=== PATIENT | female | born 1965 | race Caucasian/White ===

== ENCOUNTER 2016-07-11 17:16 | Emergency (ER) | payer OTHER ==
[2016-07-11] MEDS ORDERED: KETOROLAC TROMETHAMINE 30 MG/ML VIAL IM ONE (18:03)
[2016-07-11] MEDS ORDERED: KETOROLAC TROMETHAMINE 60 MG/2 ML VIAL IM ONE (18:09)
--- NOTE | 2016-07-11 18:16 | ERNOTE ---
Upper Extremity HPI - General Extremities Pain Location: shoulder: left Time Seen by Provider: 07/11/16 17:44 Source: patient Exam Limitations: no limitations - Immun/Allergies/Home Medications Immunizations: IMMUNIZATION HX Immunizations Up to Date Yes History of Influenza Vaccine No Hx Pneumococcal Vaccination No Allergies/Adverse Reactions: Allergies Allergy/AdvReac Type Severity Reaction Status Date / Time No Known Allergies Allergy Unverified 11/29/15 22:36 Home Medications: HOME MEDICATIONS Amitriptyline HCl [Elavil] 25 mg PO HS #30 tab 02/03/16 [Last Taken Unknown] LORazepam [Ativan] 1 mg PO TID #30 tab 02/03/16 [Last Taken Unknown] Naproxen [Naprosyn] 500 mg PO BID #60 tablet 07/11/16 [Last Taken Unknown] - History of Present Illness Narrative: Patient presents with exacerbation of her left shoulder pain. 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 She states she has very limited range of motion at this point without severe pain. Occurred: other - re-injury over and old injury Location of Incident: work Severity: severe Method of Injury: Reports: direct blow - initially Modifying Factors - (Worsens): Reports: movement Other Injuries: Reports: none Review of Systems - Review of Systems Constitutional: Present: no symptoms reported, See HPI EYE: Present: no symptoms reported ENT: Present: no symptoms reported Respiratory: Present: no symptoms reported Cardiology: Present: no symptoms reported Gastrointestinal/Abdominal: Present: no symptoms reported Genitourinary: Present: no symptoms reported Musculoskeletal: Present: See HPI, joint pain Skin: Present: no symptoms reported Neurological: Present: no symptoms reported Endocrine: Present: no symptoms reported Hematologic/Lymphatic: Present: no symptoms reported Psych: Present: no symptoms reported - Patient's Past Medical History Patient History - Medical: No pertinent hx, Other - depression and anxiety Patient History - Cardiac/Respiratory: No pertinent hx Additional Info: old shoulder injury Patient History - Cancer: No Hx of Cancer Patient History - Surgical Procedures: Patient History - Other: None - Social History Living Situations: home Psych History: Hx of Anxiety, Hx of Depression Alcohol Use: none Drug Use: marijuana, meth - Immunizations Immunizations Up to Date: Yes Hx Pneumococcal Vaccination: No History of Influenza Vaccine: No Physical Exam - Physical Exam General Appearance: Present: wd/wn, alert, moderate distress - worse with any use or motion Eye Exam: Normal inspection: bilateral, PERRL: bilateral Ears, Nose, Throat: Present: normal ENT inspection, H, normal pharynx Neck: Present: normal inspection, nontender Respiratory: Present: no respiratory distress, normal breath sounds, no accessory muscle use, chest nontender, lungs clear Cardiovascular/Chest: Present: regular rate, rhythm, no murmur, normal peripheral pulses Gastrointestinal/Abdominal: Present: normal bowel sounds, nontender, nondistended, soft, no organomegaly Rectal Exam: Present: deferred Back Exam: Present: normal inspection, normal range of motion Extremity Exam: Present: no edema, decreased range of motion, other - pt unable to fully perform internal rotation, external rotation or abduction without significant pain Neurological Exam: Present: alert, oriented, normal mood/affect Skin Exam: Present: normal color, warm/dry Lymphatic Exam: Present: no adenopathy ED Progress - Vital Signs Patient's Vital Signs:: I have reviewed the patient's vital signs. - X-Ray X-Ray #1 X-Ray: shoulder - Progress/Reassessment Chief Complaint: Shoulder Injury/Pain Progress:: Improved Plan - Plan Plan: Given the amount of pain that she has her left shoulder is difficult to determine whether there is an actual rotator cuff component to this or not. Patient will be placed in a sling, she will be started on NSAIDs and we will give her a referral to orthopedic surgery. Departure Clinical Impression: Left shoulder strain Qualifiers: Encounter type: initial encounter Qualified Code(s): S46.912A - Strain of unspecified muscle, fascia and tendon at shoulder and upper arm level, left arm , initial encounter - Departure Disposition: Home self-care Condition: Good Instructions: Shoulder Pain, [id number] Referrals: Cecil Singer MD [Staff Physician] - Prescriptions: Naproxen [Naprosyn] 500 mg PO BID #60 tablet
--- OUTSIDE RECORDS SUMMARY | 2016-07-11 18:21 | XMS REPORT | Continuity of Care Document ---
:1965 Author Organization [facility] [place] [address] Care Team Providers Name Role Phone Provider, None Per Patient Primary Care Provider Unavailable Source Comments This disclosure is being made pursuant to the [employer] program and contain all information available regarding this patient.[facility] Active Allergies and Adverse Reactions No Known Allergies Current Medications Be aware that medications may not be up to date as of this document. Alwaysverify current medications with the patient. Prescription Sig. Disp. Refills Start Date End Date Status amitriptyline Take 1 tablet 30 tablet 1 07/04/2016 Active (ELAVIL) 25 MG tablet by mouth nightly. cyclobenzaprine Take 1 tablet 30 tablet 1 07/04/2016 Active (FLEXERIL) 10 MG by mouth tablet nightly as needed for Muscle spasms. hydrOXYzine (ATARAX) Take 1 tablet 60 tablet 0 07/04/2016 Active 25 MG tablet by mouth every 8 (eight) hours as needed for Anxiety. meloxicam (MOBIC) 15 Take 1 tablet 30 tablet 2 07/04/2016 Active MG tablet by mouth daily. cloNIDine (CATAPRES) Take 1 tablet 20 tablet 0 09/29/2011 Discontinued 0.1 MG tablet by mouth 2 7 (two) times daily. meloxicam (MOBIC) 15 Take 1 tablet 30 tablet 2 07/04/2016 Discontinued MG tablet by mouth 7 daily. cyclobenzaprine Take 1 tablet 30 tablet 1 07/04/2016 Discontinued (FLEXERIL) 10 MG by mouth 7 tablet nightly as needed for Muscle spasms. amitriptyline Take 1 tablet 30 tablet 1 07/04/2016 Discontinued (ELAVIL) 25 MG tablet by mouth 7 nightly. hydrOXYzine (ATARAX) Take 1 tablet 60 tablet 0 07/04/2016 Discontinued 25 MG tablet by mouth 7 every 8 (eight) hours as needed for Anxiety. Active Problems No known active problems Most Recent Encounters Date Type Specialty Providers Description 07/04/2016 Office Visit Family Medicine Dayday Grossman DO Acute pain of left shoulder (Primary Dx); Acute midline low back pain without sciatica; Depression, unspecified depression type; Anxiety Social History Tobacco Use Types Packs/Day Years Used Date Current Every Day Smoker 0.5 Alcohol Use Drinks/Week oz/Week Comments No Last Filed Vital Signs Vital Sign Reading Time Taken Blood Pressure 132/94 07/04/2016 5:03 PM CDT Pulse 112 07/04/2016 5:03 PM CDT Temperature 36.3 C (97.3 F) 09/29/2011 11:47 AM CDT Respiratory Rate 16 07/04/2016 5:03 PM CDT Height 1.727 m (5' 8") 07/04/2016 5:03 PM CDT Weight 68.312 kg (150 lb 9.6 oz) 07/04/2016 5:03 PM CDT Body Mass Index 22.9 07/04/2016 5:03 PM CDT Oxygen Saturation 98% 07/04/2016 5:03 PM CDT Plan of Care Date Type Specialty Providers Description 07/18/2016 Appointment Family Medicine Dayday Grossman DO [facility] [place], [place] [id number] [phone] (Fax) Health Maintenance Due Date Last Done Comments Pneumococcal Medium Risk 19-64 yo (1 of 1 - PPSV23) 01/06/1984 Tetanus/Pertussis (1 - Tdap) 01/06/1984 Pap Smear 1986 Colonoscopy 2015 Mammogram 2015 Well Adult Visit 2015 Influenza Immunization (#1) 2015 Results from Last 3 Months Not on file
--- OUTSIDE RECORDS SUMMARY | 2016-07-11 18:21 | XMS REPORT | Continuity of Care Document ---
:1965 Author Organization [facility] ([facility] [place]) Address [address] [place] [address] Phone [phone] Care Team Providers Name Role Phone Unavailable Primary Care Provider Unavailable Source Comments This disclosure is being made pursuant to the Care Everywhere program, applicable federal and state laws, and may not contain all informaitonavailable regarding this patient.[facility] ([facility] [place]) Active Allergies and Adverse Reactions Not on File Current Medications Not on file Active Problems Not on file Social History Tobacco Use Types Packs/Day Years Used Date Never Assessed Plan of Care Health Maintenance Due Date Last Done Comments HCV Screening 1965 Hepatitis B Vaccine (1 of 3 - Primary Series) 1965 Tdap Vaccine 01/06/1976 Lipid Disorder Screening 1983 MMR Vaccine 1983 Td Vaccine 1983 Cervical Cancer Screening 1995 Mammogram 2005 07/23/1997 Colonoscopy 2015 Influenza Vaccine: Seasonal (#1) 10/12/2015 Results from Last 3 Months Not on file
[2016-07-11 19:17] VITALS: BP 135/76
== END 2016-07-11 19:05 | disposition home or self-care (01) ==
LOC: ER 17:16
DX: S46.912A Strain of unspecified muscle, fascia and tendon at shoulder and upper arm level, left arm, initial encounter (principal); X50.3XXA Overexertion from repetitive movements, initial encounter; Y93.H2 Activity, gardening and landscaping; Y92.89 Other specified places as the place of occurrence of the external cause; Y99.0 Civilian activity done for income or pay; F41.9 Anxiety disorder, unspecified; F32.9 Major depressive disorder, single episode, unspecified

== ENCOUNTER 2016-10-06 20:35 | Emergency (ER) | payer OTHER ==
[2016-10-06] MEDS ORDERED: ACETAMINOPHEN WITH CODEINE 1 EACH TABLET PO ONE (21:29)
--- OUTSIDE RECORDS SUMMARY | 2016-10-06 21:29 | XMS REPORT | Clinical Summary ---
:1965 Author Organization [facility] [place] [address] Care Team Providers Name Role Phone Unavailable Primary Care Provider Unavailable Source Comments This disclosure is being made pursuant to the [employer] program and maynot contain all information available regarding this patient.[facility] Allergies No Known Allergies Current Medications Be aware that medications may not be up to date as of this document. Alwaysverify current medications with the patient. Prescription Sig. Disp. Refills Start Date End Date Status amitriptyline (ELAVIL) Take 1 tablet by 30 tablet 1 07/04/2016 Active 25 MG mouth nightly. tabletIndications:Depres chantelle, unspecified depression type cyclobenzaprine Take 1 tablet by 30 tablet 1 07/04/2016 Active (FLEXERIL) 10 MG mouth nightly as tabletIndications:Acute needed for pain of left Muscle spasms. shoulder,Acute midline low back pain without sciatica hydrOXYzine (ATARAX) 25 Take 1 tablet by 60 tablet 0 07/04/2016 Active MG mouth every 8 tabletIndications:Anxiet (eight) hours as y needed for Anxiety. meloxicam (MOBIC) 15 MG Take 1 tablet by 30 tablet 2 07/04/2016 Active tabletIndications:Acute mouth daily. pain of left shoulder,Acute midline low back pain without sciatica Active Problems No known active problems Family History Medical History Relation Name Comments Diabetes Father Alzheimer's disease Mother Relation Name Status Comments Father Mother Social History Tobacco Use Types Packs/Day Years Used Date Current Every Day Smoker 0.5 Alcohol Use Drinks/Week oz/Week Comments No Sex Assigned at Date Recorded Not on file Last Filed Vital Signs Vital Sign Reading Time Taken Blood Pressure 132/94 07/04/2016 5:03 PM CDT Pulse 112 07/04/2016 5:03 PM CDT Temperature 36.3 C (97.3 F) 09/29/2011 11:47 AM CDT Respiratory Rate 16 07/04/2016 5:03 PM CDT Oxygen Saturation 98% 07/04/2016 5:03 PM CDT Inhaled Oxygen Concentration - - Weight 68.3 kg (150 lb 9.6 oz) 07/04/2016 5:03 PM CDT Height 172.7 cm (5' 8") 07/04/2016 5:03 PM CDT Body Mass Index 22.9 07/04/2016 5:03 PM CDT Plan of Treatment Health Maintenance Due Date Last Done Comments Pneumococcal Medium Risk 19-64 yo (1 of 1 - PPSV23) 01/06/1984 Tetanus/Pertussis (1 - Tdap) 01/06/1984 Pap Smear 1986 Colonoscopy 2015 Mammogram 2015 Well Adult Visit 2015 INFLUENZA IMMUNIZATION (#1) 2015 Results Not on filefrom Last 3 Months Insurance Payer Benefit Plan / Subscriber ID Type Phone Address Group [employer] [place] [id number] Managed [phone] [address] [address] MEDICAID MEDICAID [address] [place] [address] [address] [phone] [address] [place] Personal/Family Self 1965 [address]: [address] [phone] [place] [address] [place] [address] [place] VEL[place]SQUEZ Third Republican Self 1965 Home: [address] Liability [phone] [place] [address] [place] [address]
--- OUTSIDE RECORDS SUMMARY | 2016-10-06 21:29 | XMS REPORT | Encounter Summary ---
:1965 Author Organization [employer] [place] [address] Care Team Providers Name Role Phone Unavailable Primary Care Provider Unavailable Reason for Visit Reason Comments Shoulder Pain Left Back Pain-New >28 days Encounter Details Date Type Department Care Team Description 07/04/2016 Office Visit [facility] Dayday Grossman V, Acute pain of left shoulder (Primary Dx); Fernando MYLES Acute midline low back pain without sciatica; [facility] Depression, unspecified depression type; [place] [address] [place] [address] Anxiety [phone] Social History Tobacco Use Types Packs/Day Years Used Date Current Every Day Smoker 0.5 Alcohol Use Drinks/Week oz/Week Comments No Sex Assigned at Date Recorded Not on file as of this encounter Last Filed Vital Signs Vital Sign Reading Time Taken Blood Pressure 132/94 07/04/2016 5:03 PM CDT Pulse 112 07/04/2016 5:03 PM CDT Temperature - - Respiratory Rate 16 07/04/2016 5:03 PM CDT Oxygen Saturation 98% 07/04/2016 5:03 PM CDT Inhaled Oxygen Concentration - - Weight 68.3 kg (150 lb 9.6 oz) 07/04/2016 5:03 PM CDT Height 172.7 cm (5' 8") 07/04/2016 5:03 PM CDT Body Mass Index 22.9 07/04/2016 5:03 PM CDT in this encounter Instructions Patient Instructions - Dayday Grossman DO - 07/04/2016 5:30 PM CDT Depression Treatment: Care Instructions Your Care Instructions Depression is a condition that affects the way you feel, think, and act. It causes symptoms such as low energy, loss of interest in daily activities, and sadness or grouchiness that goes on for a longtime. Depression is very common and affects men and women of all ages. Depression is a medical illness caused by changes in the natural chemicals in your brain. It is not a character flaw, and it does not mean that you are a bad or weak person. It does not mean that youare going crazy. It is important to know that depression can be treated. Medicines, counseling, and self-care can all help. Many people do not get help because they are embarrassed or think that they will get over thedepression on their own. But some people do not get better without treatment. Follow-up care is a thomas part of your treatment and safety. Be sure to make and go to all appointments, and call your doctor if you are having problems. It's also a good idea to know your test resultsand keep a list of the medicines you take. How can you care for yourself at home? Learn about antidepressant medicines Antidepressant medicines can improve or end the symptoms of depression. You may need to take the medicine for at least 6 months, and often longer. Keep taking your medicine even if you feel better. Ifyou stop taking it too soon, your symptoms may come back or get worse. You may start to feel better within 1 to 3 weeks of taking antidepressant medicine. But it can take as many as 6 to 8 weeks to see more improvement. Talk to your doctor if you have problems with yourmedicine or if you do not notice any improvement after 3 weeks. Antidepressants can make you feel tired, dizzy, or nervous. Some people have dry mouth, constipation, headaches, sexual problems, an upset stomach, or diarrhea. Many of these side effects are mild andgo away on their own after you take the medicine for a few weeks. Some may last longer. Talk to your doctor if side effects bother you too much. You might be able to try a different medicine. If youare or , talk to your doctor about what medicines you can take. Learn about counseling In many cases, counseling can work as well as medicines to treat mild to moderate depression. Counseling is done by licensed mental health providers, such as psychologists, social workers, and some types of nurses. It can be done in one-on-one sessions or in a group setting. Many people find group sessions helpful. Cognitive-behavioral therapy is a type of counseling. In this treatment therapy , you learn how to see and change unhelpful thinking styles that may be adding to your depression. Counseling and medicines often work well when used together. To manage depression Be physically active. Getting 30 minutes of exercise each day is good for your body and your mind. Begin slowly if it is hard for you to get started. If you already exercise, keep it up. Plan something pleasant for yourself every day. Include activities that you have enjoyed in the past. Get enough sleep. Talk to your doctor if you have problems sleeping. Eat a balanced diet. If you do not feel hungry, eat small snacks rather than large meals. Do not drink alcohol, use illegal drugs, or take medicines that your doctor has not prescribed for you. They may interfere with your treatment. Spend time with family and friends. It may help to speak openly about your depression with people you trust. Take your medicines exactly as prescribed. Call your doctor if you think you are having a problem with your medicine. Do not make major life decisions while you are depressed. Depression may change the way you think. You will be able to make better decisions after you feel better. Think positively. Challenge negative thoughts with statements such as "I am hopeful"; "Things will get better"; and "I can ask for the help I need." Write down these statements and read them often,even if you don't believe them yet. Be patient with yourself. It took time for your depression to develop, and it will take time for your symptoms to improve. Do not take on too much or be too hard on yourself. Learn all you can about depression from written and online materials. Check out behavioral health classes to learn more about dealing with depression. Keep the numbers for these national suicide hotlines: 5-096-060-TALK (3-172- 028-8961) and 7-998-AEVQJAD ( ). If you or someone you know talks about suicide or feeling hopeless, get help right away. When should you call for help? Call 911 anytime you think you may need emergency care. For example, call if: You feel you cannot stop from hurting yourself or someone else. Call your doctor now or seek immediate medical care if: You hear voices. You feel much more depressed. Watch closely for changes in your health, and be sure to contact your doctor if: You are having problems with your depression medicine. You are not getting better as expected. Where can you learn more? Go to the "Search [employer] Library" box on Superbly [email or web address] by clicking on the magnifying glass tab. Enter G693 in the search box to learn more about "Depression Treatment: Care Instructions." Not on Superbly? Go to [email or web address] and click the "Sign Up Now" link to request an activation code. Current as of: October 06, 2015 Content Version: 11.2 4323-9767 [employer]. Care instructions adapted under license by your healthcare professional. This care instruction is for use with your licensed healthcare professional. If you havequestions about a medical condition or this instruction, always ask your healthcare professional. [employer] disclaims any warranty or liability for your use of this information. Back Pain: Care Instructions Your Care Instructions Back pain has many possible causes. It is often related to problems with muscles and ligaments of the back. It may also be related to problems with the nerves, discs, or bones of the back. Moving, lifting, standing, sitting, or sleeping in an awkwardway can strain the back. Sometimes you don't notice the injury until later. Arthritis is another common cause of back pain. Although it may hurt a lot, back pain usually improves on its own within several weeks. Most people recover in 12 weeks or less. Using good home treatment and being careful not to stress your back canhelp you feel better sooner. Follow-up care is a thomas part of your treatment and safety. Be sure to make and go to all appointments, and call your doctor if you are having problems. Its also a good idea to know your test results and keep a list of the medicines you take. How can you care for yourself at home? Sit or lie in positions that are most comfortable and reduce your pain. Try one of these positions when you lie down: Lie on your back with your knees bent and supported by large pillows. Lie on the floor with your legs on the seat of a sofa or chair. Lie on your side with your knees and hips bent and a pillow between your legs. Lie on your stomach if it does not make pain worse. Do not sit up in bed, and avoid soft couches and twisted positions. Bed rest can help relieve pain at first, but it delays healing. Avoid bed rest after the first day of back pain. Change positions every 30 minutes. If you must sit for long periods of time, take breaks from sitting. Get up and walk around, or lie in a comfortable position. Try using a heating pad on a low or medium setting for 15 to 20 minutes every 2 or 3 hours. Try a warm shower in place of one session with the heating pad. You can also try an ice pack for 10 to 15 minutes every 2 to 3 hours. Put a thin cloth between the ice pack and your skin. Take pain medicines exactly as directed. If the doctor gave you a prescription medicine for pain, take it as prescribed. If you are not taking a prescription pain medicine, ask your doctor if you can take an ispo-swe-qkasuqa medicine. Take short walks several times a day. You can start with 5 to 10 minutes, 3 or 4 times a day, and work up to longer walks. Walk on level surfaces and avoid hills and stairs until your back is better. Return to work and other activities as soon as you can. Continued rest without activity is usually not good for your back. To prevent future back pain, do exercises to stretch and strengthen your back and stomach. Learn how to use good posture, safe lifting techniques, and proper body mechanics. When should you call for help? Call your doctor now or seek immediate medical care if: You have new or worsening numbness in your legs. You have new or worsening weakness in your legs. (This could make it hard to stand up.) You lose control of your bladder or bowels. Watch closely for changes in your health, and be sure to contact your doctor if: Your pain gets worse. You are not getting better after 2 weeks. Where can you learn more? Go to the "Search [employer]" box on Superbly [email or web address] by clicking on the magnifying glass tab. Enter I594 in the search box to learn more about "Back Pain: Care Instructions. " Not on Superbly? Go to [email or web address] and click the "Sign Up Now" link to request an activation code. Current as of: August 03, 2015 Content Version: 11.2 7175-1965 [employer]. Care instructions adapted under license by your healthcare professional. This care instruction is for use with your licensed healthcare professional. If you havequestions about a medical condition or this instruction, always ask your healthcare professional. [employer] disclaims any warranty or liability for your use of this information. Shoulder Pain: Care Instructions Your Care Instructions You can hurt your shoulder by using it too much during an activity, such as fishing or baseball. It can also happen as part of the everyday wear and tear of getting older. Shoulder injuries can be slow to heal, but your shoulder should get better with time. Your doctor may recommend a sling to rest your shoulder. If you have injured your shoulder, you may need testing and treatment. Follow-up care is a thomas part of your treatment and safety. Be sure to make and go to all appointments, and call your doctor if you are having problems. It's also a good idea to know your test resultsand keep a list of the medicines you take. How can you care for yourself at home? Take pain medicines exactly as directed. If the doctor gave you a prescription medicine for pain, take it as prescribed. If you are not taking a prescription pain medicine, ask your doctor if you can take an qfys-pgw-anfjlum medicine. Do not take two or more pain medicines at the same time unless the doctor told you to. Many pain medicines contain acetaminophen, which is Tylenol. Too much acetaminophen (Tylenol) can be harmful. If your doctor recommends that you wear a sling, use it as directed. Do not take it off before your doctor tells you to. Put ice or a cold pack on the sore area for 10 to 20 minutes at a time. Put a thin cloth between the ice and your skin. If there is no swelling, you can put moist heat, a heating pad, or a warm cloth on your shoulder. Some doctors suggest alternating between hot and cold. Rest your shoulder for a few days. If your doctor recommends it, you can then begin gentle exercise of the shoulder, but do not lift anything heavy. When should you call for help? Call 911 anytime you think you may need emergency care. For example, call if: You have chest pain or pressure. This may occur with: Sweating. Shortness of breath. Nausea or vomiting. Pain that spreads from the chest to the neck, jaw, or one or both shoulders or arms. Dizziness or lightheadedness. A fast or uneven pulse. After calling 911, chew 1 adult-strength aspirin. Wait for an ambulance. Do not try to drive yourself. Your arm or hand is cool or pale or changes color. Call your doctor now or seek immediate medical care if: You have signs of infection, such as: Increased pain, swelling, warmth, or redness in your shoulder. Red streaks leading from a place on your shoulder. Pus draining from an area of your shoulder. Swollen lymph nodes in your neck, armpits, or groin. A fever. Watch closely for changes in your health, and be sure to contact your doctor if: You cannot use your shoulder. Your shoulder does not get better as expected. Where can you learn more? Go to the "Search Health Library" box on Superbly [email or web address] by clicking on the magnifying glass tab. Enter H996 in the search box to learn more about "Shoulder Pain: Care Instructions." Not on Superbly? Go to [email or web address] and click the "Sign Up Now" link to request an activation code. Current as of: August 03, 2015 Content Version: 11.2 2166-9730 [employer]. Care instructions adapted under license by your healthcare professional. This care instruction is for use with your licensed healthcare professional. If you havequestions about a medical condition or this instruction, always ask your healthcare professional. [employer] disclaims any warranty or liability for your use of this information. in this encounter Progress Notes Dayday Grossman DO - 07/04/2016 4:52 PM CDTFormatting of this note may be different from the original. Subjective: Patient ID: Sanjuanita Iverson is a 51 y.o. female. HPI Comments: Shoulder Pain Patient complains of left shoulder pain. The symptoms began several months ago. 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 Pain is located in the shoulder joint. Discomfort is described as sharp/stabbing and throbbing. Symptoms are exacerbated by repetitive movements and overhead movements. Evaluation to date: plain films: patient brought her filmswith her. Therapy to date includes: ice and OTC analgesics which are not very effective. Back Pain-New<28 days This is a new problem. The current episode started more than 1 month ago. The problem occurs constantly. The problem has been gradually worsening. The symptoms are aggravated by bending, standing andwalking. She has tried NSAIDs and acetaminophen forthe symptoms. The treatment provided no relief. Patient also complained of feeling depressed from deaths in her family. Difficulty resting and feeling sad. No suicidal ideation. She states has been on Amitriptylline in past and that it worked for her. She also has Anxiety with recent changes goingon. Patient's problem list, medications, allergies, past medical, surgical, social and family histories were reviewed and updated as appropriate. Current Outpatient Prescriptions Medication Sig Dispense Refill amitriptyline (ELAVIL) 25 MG tablet Take 1 tablet by mouth nightly. 30 tablet 1 cyclobenzaprine (FLEXERIL) 10 MG tablet Take 1 tablet by mouth nightly as needed for Muscle spasms. 30 tablet 1 hydrOXYzine (ATARAX) 25 MG tablet Take 1 tablet by mouth every 8 (eight) hours as needed for Anxiety. 60 tablet 0 meloxicam (MOBIC) 15 MG tablet Take 1 tablet by mouth daily. 30 tablet 2 No current facility-administered medications for this visit. No Known Allergies Review of Systems Constitutional: Negative. HENT: Negative. Respiratory: Negative. Cardiovascular: Negative. Gastrointestinal: Negative. Musculoskeletal: Positive for back pain. Left shoulder pain Skin: Negative. Neurological: Negative. Objective: BP 132/94 mmHg | Pulse 112 | Resp 16 | Ht 1.727 m (5' 8") | Wt 68.312 kg (150 lb 9.6 oz) | BMI 22.90 kg/m2 | SpO2 98% Body mass index is 22.9 kg/(m^2). Physical Exam Constitutional: She is oriented to person, place, and time. She appears well- developed and well-nourished. HENT: Head: Normocephalic and atraumatic. Eyes: EOM are normal. Pupils are equal, round, and reactive to light. Neck: Normal range of motion. Neck supple. Cardiovascular: Normal rate, regular rhythm and normal heart sounds. Pulmonary/Chest: Effort normal and breath sounds normal. Abdominal: Soft. Musculoskeletal: Normal range of motion. Patient feels pain and discomfort in her left shoulder with certain range of motion and when lifting overhead feels pain in posterior part of left arm. Otherwise normal range of motion with shoulderand back. Back pain is in lumbar area midline. Neurological: She is alert and oriented to person, place, and time. Skin: Skin is warm and dry. Psychiatric: Her behavior is normal. Judgment and thought content normal. Flat affect but otherwise interacts normally. Nursing note and vitals reviewed. Assessment/Orders: Diagnoses and all orders for this visit: Acute pain of left shoulder - Discontinue: meloxicam (MOBIC) 15 MG tablet; Take 1 tablet by mouth daily. - Discontinue: cyclobenzaprine (FLEXERIL) 10 MG tablet; Take 1 tablet by mouth nightly as needed for Muscle spasms. - cyclobenzaprine (FLEXERIL) 10 MG tablet; Take 1 tablet by mouth nightly as needed for Muscle spasms. - meloxicam (MOBIC) 15 MG tablet; Take 1 tablet by mouth daily. Acute midline low back pain without sciatica - Discontinue: meloxicam (MOBIC) 15 MG tablet; Take 1 tablet by mouth daily. - Discontinue: cyclobenzaprine (FLEXERIL) 10 MG tablet; Take 1 tablet by mouth nightly as needed for Muscle spasms. - cyclobenzaprine (FLEXERIL) 10 MG tablet; Take 1 tablet by mouth nightly as needed for Muscle spasms. - meloxicam (MOBIC) 15 MG tablet; Take 1 tablet by mouth daily. Depression, unspecified depression type - Discontinue: amitriptyline (ELAVIL) 25 MG tablet; Take 1 tablet by mouth nightly. - amitriptyline (ELAVIL) 25 MG tablet; Take 1 tablet by mouth nightly. Anxiety - Discontinue: hydrOXYzine (ATARAX) 25 MG tablet; Take 1 tablet by mouth every 8 (eight) hours as needed for Anxiety. - hydrOXYzine (ATARAX) 25 MG tablet; Take 1 tablet by mouth every 8 (eight) hours as needed for Anxiety. Plan: Reviewed x-ray results for neck and back that patient brought with her. Take medications as directed. Call for questions or concerns. in this encounter Plan of Treatment Not on fileas of this encounter Visit Diagnoses Diagnosis Acute pain of left shoulder - Primary Acute midline low back pain without sciatica Depression, unspecified depression type Anxiety Anxiety state, unspecified in this encounter
[2016-10-06] MEDS ORDERED: ACETAMINOPHEN WITH CODEINE 1 EACH TABLET ONE (21:33)
--- NOTE | 2016-10-06 21:33 | ERNOTE ---
Lower Extremity HPI - Narrative Date of Service: 10/06/16 - General Lower Extremities Pain: foot: right - 12/20 pain Time Seen by Provider: 10/06/16 21:20 Source: patient Exam Limitations: no limitations - Immun/Allergies/Home Medications Immunizations: IMMUNIZATION HX Immunizations Up to Date Yes History of Influenza Vaccine No Hx Pneumococcal Vaccination No Allergies/Adverse Reactions: Allergies Allergy/AdvReac Type Severity Reaction Status Date / Time No Known Allergies Allergy Verified 10/06/16 20:44 Home Medications: HOME MEDICATIONS Diclofenac Sodium 75 mg PO BID #20 tablet. 10/06/16 [Last Taken Unknown] - History of Present Illness Narrative: patient states she drooped a large glass table top on her right foot. Date (Duration): 10/05/16 Time (Timing): 21:00 Occurred: yesterday - dropped large piece of glass on right foot, hurt some but today much worse unable to walk Location of Incident: home Method of Injury: Reports: fell, other - blunt trauma, was Reason for Fall: Reports: unknown Loss of Consciousness: Reports: no loss of consciousness Modifying Factors - (Improves): Reports: cold therapy Modifying Factors - (Worsens): Reports: cold therapy Associated Symptoms: Reports: unable to bear weight Other Injuries: Reports: none Subsequent Symptoms: Reports: sensory loss Review of Systems - Review of Systems Constitutional: Present: no symptoms reported EYE: Present: no symptoms reported ENT: Present: no symptoms reported Respiratory: Present: no symptoms reported Cardiology: Present: no symptoms reported Gastrointestinal/Abdominal: Present: no symptoms reported Genitourinary: Present: no symptoms reported Musculoskeletal: Present: See HPI, other - foot pain Skin: Present: no symptoms reported. Absent: rash, lumps, change in color Neurological: Present: no symptoms reported Endocrine: Present: no symptoms reported Hematologic/Lymphatic: Present: no symptoms reported All Other Systems: All systems neg except as marked - Narrative Narrative: Reviewed - Patient's Past Medical History Patient History - Medical: No pertinent hx, Other Patient History - Cardiac/Respiratory: No pertinent hx Patient History - Cancer: No Hx of Cancer Patient History - Surgical Procedures: Patient History - Other: None - Social History Living Situations: home Psych History: Hx of Anxiety, Hx of Depression Smoking Status: Current every day smoker Alcohol Use: none Drug Use: none - Immunizations Immunizations Up to Date: Yes Hx Pneumococcal Vaccination: No History of Influenza Vaccine: No Physical Exam - Physical Exam General Appearance: Present: wd/wn, alert, no apparent distress Head Exam: Present: normal inspection, no evidence of injury Eye Exam: Normal inspection: bilateral, PERRL: bilateral, EOMI: bilateral Ears, Nose, Throat: Present: normal ENT inspection Neck: Present: normal inspection Respiratory: Present: no respiratory distress, normal breath sounds, lungs clear Cardiovascular/Chest: Present: regular rate, rhythm, no murmur, normal peripheral pulses Gastrointestinal/Abdominal: Present: normal bowel sounds, nontender, soft Rectal Exam: Present: deferred Back Exam: Present: other - deferred Extremity Exam: Present: normal inspection Neurological Exam: Present: alert, oriented, normal mood/affect, no motor/ sensory deficits DTR: N=norm/NB=norm/brisk/A=abs/DD=dull/dimin/HC=hyperactive: Knee (R): Normal, Knee (L): Normal, Ankle (R): Normal, Ankle (L): Normal Skin Exam: Present: normal color, warm/dry, other - no bruising . Absent: pallor, skin rash Lymphatic Exam: Present: no adenopathy ED Progress - Vital Signs Patient's Vital Signs:: I have reviewed the patient's vital signs. Vital Signs: Vital Signs 10/06/16 10/06/16 20:39 21:09 Temperature 36.9 C Pulse Rate 92 89 Respiratory 16 Rate Blood Pressure 155/48 147/82 O2 Sat by Pulse 98 98 Oximetry - X-Ray X-Ray #1 X-Ray: foot Interpretation: Interp. by me, Reviewed by me, Sadny w/ radiologist X-ray Comments: no acute fracture noted no soft tissue swelling noted, no bruising. - Progress/Reassessment Chief Complaint: Foot Injury/Pain Progress:: Improved - after analgesic Tylenol # 3 x 2 po Plan - Plan Plan: stable for discharge home Departure Clinical Impression: Contusion, foot Qualifiers: Encounter type: initial encounter Laterality: right Qualified Code(s): S90.31XA - Contusion of right foot, initial encounter - Departure Disposition: Home self-care Condition: Good Instructions: RICE for Routine Care of Injuries, [id number] Additional Instructions: Followup with your family care provider , comfortable shoes for support Prescriptions: Diclofenac Sodium 75 mg PO BID #20 tablet.
[2016-10-06 23:37] VITALS: BP 146/88
== END 2016-10-06 23:36 | disposition home or self-care (01) ==
LOC: ER 20:35
DX: S90.31XA Contusion of right foot, initial encounter (principal); F17.200 Nicotine dependence, unspecified, uncomplicated; W20.8XXA Other cause of strike by thrown, projected or falling object, initial encounter; Y92.009 Unspecified place in unspecified non-institutional (private) residence as the place of occurrence of the external cause

== ENCOUNTER 2016-12-19 14:23 | Emergency (ER) | payer OTHER ==
[2016-12-19 14:44] VITALS: BP 129/86
--- NOTE | 2016-12-19 15:11 | ERNOTE ---
Medical Problem HPI - General Chief Complaint: General Assessment Time Seen by Provider: 12/19/16 14:51 Source: patient Exam Limitations: no limitations - Immun/Allergies/Home Medications Immunizations: IMMUNIZATION HX Immunizations Up to Date Yes History of Influenza Vaccine No Hx Pneumococcal Vaccination No Allergies/Adverse Reactions: Allergies No Known Allergies Allergy (Verified 10/06/16 20:44) Home Medications: HOME MEDICATIONS ALPRAZolam [Xanax] 1 mg PO BID 12/19/16 [Last Taken Unknown] Dextroamphetamine/Amphetamine [Adderall 30 mg Tablet] 60 mg PO DAILY 12/19/16 [ Last Taken Unknown] Lamotrigine [Lamictal] 100 mg PO DAILY 12/19/16 [Last Taken Unknown] Naproxen [Naprosyn] 500 mg PO BID #60 tablet 12/19/16 [Last Taken Unknown] risperiDONE [Risperdal] 1 mg PO HS 12/19/16 [Last Taken Unknown] - History of Present History Narrative: Patient was attempting to hang a blanket over the window to block out in the sunlight coming through since 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 She missed the bottom step on the stepladder and fell backward and landing on her left gluteal region. Patient now complains of moderate pain and bruising in that area, as well as some bruising on the left flank and on the left proximal thigh. She states the pain is moderate in intensity and like something nonsedating to control the pain. Timing: constant Severity: moderate Review of Systems - Review of Systems Constitutional: Present: See HPI EYE: Present: no symptoms reported ENT: Present: no symptoms reported Respiratory: Present: no symptoms reported Cardiology: Present: no symptoms reported Gastrointestinal/Abdominal: Present: no symptoms reported Genitourinary: Present: no symptoms reported Musculoskeletal: Present: See HPI Skin: Present: no symptoms reported Neurological: Present: no symptoms reported Endocrine: Present: no symptoms reported Hematologic/Lymphatic: Present: no symptoms reported Psych: Present: no symptoms reported - Patient's Past Medical History Patient History - Medical: No pertinent hx, Other Patient History - Cardiac/Respiratory: No pertinent hx Patient History - Cancer: No Hx of Cancer Patient History - Surgical Procedures: Patient History - Other: None - Social History Psych History: Hx of Anxiety, Hx of Depression Smoking Status: Current every day smoker Have you smoked in the past 12 months: Yes Alcohol Use: none Drug Use: none - Immunizations Immunizations Up to Date: Yes Hx Pneumococcal Vaccination: No History of Influenza Vaccine: No Physical Exam - Physical Exam General Appearance: Present: wd/wn, alert, moderate distress Eye Exam: Normal inspection: bilateral, PERRL: bilateral Ears, Nose, Throat: Present: normal ENT inspection, H, normal pharynx Neck: Present: normal inspection, nontender Respiratory: Present: no respiratory distress, normal breath sounds, no accessory muscle use, chest nontender, lungs clear Cardiovascular/Chest: Present: regular rate, rhythm, no murmur, normal peripheral pulses Gastrointestinal/Abdominal: Present: normal bowel sounds, nontender, nondistended, soft, no organomegaly Rectal Exam: Present: deferred Back Exam: Present: normal inspection, normal range of motion Extremity Exam: Present: normal range of motion, no edema, other - bruising and tenderness to the left flank left gluteal region and left proximal thigh Neurological Exam: Present: alert, oriented, normal mood/affect Skin Exam: Present: normal color, warm/dry Lymphatic Exam: Present: no adenopathy ED Progress - Vital Signs Patient's Vital Signs:: I have reviewed the patient's vital signs. Vital Signs: Vital Signs 12/19/16 14:39 Temperature 36.9 C Pulse Rate 107 H Respiratory 16 Rate Blood Pressure 129/86 O2 Sat by Pulse 95 Oximetry - Progress/Reassessment Chief Complaint: General Assessment Plan - Plan Plan: Patient was started on Naprosyn 500 mg for the pain and she was instructed to use warm heat to help break up the bruising. Patient agrees to follow-up with her family physician as needed Departure Clinical Impression: Bruising - Departure Disposition: Home self-care Condition: Good Instructions: Contusion, [id number] Referrals: Robbi Justice MD [Primary Care Provider] - Prescriptions: Naproxen [Naprosyn] 500 mg PO BID #60 tablet
== END 2016-12-19 15:13 | disposition home or self-care (01) ==
LOC: ER 14:23
DX: S70.12XA Contusion of left thigh, initial encounter (principal); S30.1XXA Contusion of abdominal wall, initial encounter; W11.XXXA Fall on and from ladder, initial encounter; Y93.9 Activity, unspecified; Y92.003 Bedroom of unspecified non-institutional (private) residence as the place of occurrence of the external cause; F17.200 Nicotine dependence, unspecified, uncomplicated